=== PATIENT | female | born 1965 | race Caucasian/White ===

== ENCOUNTER 2018-05-31 15:28 | Emergency (ER) | payer OTHER ==
[2018-05-31 15:44] VITALS: BMI 64.0
--- NOTE | 2018-05-31 15:45 | PDOC ---
Rapid Medical Evaluation Time Seen by Provider: 05/31/18 15:41 Medical Evaluation: Allergies Allergy/AdvReac Type Severity Reaction Status Date / Time No Known Allergies Allergy Verified 07/30/14 15:37 I have performed a brief in-person evaluation of this patient. The patient presents with a chief complaint of: pain management doctor told her to come here because she has a blood clot in her right leg. Patient has had pain in right LE for 1 week Pertinent physical exam findings: pain in right LE I have ordered the following: doppler right LE The patient will proceed to the ED for further evaluation. Discharge Disposition - Diagnosis Right calf pain - Referrals - Patient Instructions - Post Discharge Activity
--- NOTE | 2018-05-31 16:20 | PDOC ---
Attending Attestation - HPI HPI: 05/31/18 17:41 The patient is a 52 year old female, with a significant PMH of DM, HTN, HLD, depression, scoliosis, sciatica, who presents to the emergency department with 1 week of right leg pain. The patient states the right leg pain worsened last Rishabh when she was walking upstairs and felt an electric shock like pain radiating from her right lower back down the right leg to the right ankle. She denies any recent injuries or trauma. The patient states she has a history of sciatica and her pain feels similar to previous episodes. The patient also reports her legs are swollen at baseline but states her right lower extremity appears slightly more swollen than left. She denies any recent numbness, tingling or loss of sensation. She denies any bowel or bladder incontinence. The patient denies chest pain, palpitations, shortness of breath, headache and dizziness. Denies fever, chills, nausea, vomit, diarrhea and constipation. Denies dysuria, frequency, urgency and hematuria. Allergies: NKA - Physicial Exam PE: 05/31/18 17:41 GENERAL: Awake, alert, and fully oriented, in no acute distress HEAD: No signs of trauma EYES: PERRLA, EOMI, sclera anicteric, conjunctiva clear ENT: Auricles normal inspection, hearing grossly normal, nares patent, oropharynx clear without exudates. Moist mucosa NECK: Normal ROM, supple, no lymphadenopathy, JVD, or masses LUNGS: Breath sounds equal, clear to auscultation bilaterally. No wheezes, and no crackles HEART: Regular rate and rhythm, normal S1 and S2, no murmurs, rubs or gallops ABDOMEN: +Obese. Soft, nontender, normoactive bowel sounds. No guarding, no rebound. No masses EXTREMITIES: +Lower back right paraspinal tenderness. +Tenderness to palpitation down the right leg. +Right calf tenderness. Neurovascular intact. Brisk capillary refill. Normal range of motion. No clubbing or cyanosis. No cords or erythema. NEUROLOGICAL: Cranial nerves II through XII grossly intact. Normal speech. SKIN: Warm, Dry, normal turgor, no rashes or lesions noted. <Manuel Canales - Last Filed: 05/31/18 17:40> - Resident Resident Name: Lisha Jackson - ED Attending Attestation I have performed the following: I have examined & evaluated the patient, The case was reviewed & discussed with the resident, I agree w/resident's findings & plan, Exceptions are as noted - Medical Decision Making 05/31/18 16:20 I, Dr. Julissa Ferreira, DO, attest that this document has been prepared under my direction and personally reviewed by me in its entirety. I further attest, that it accurately reflects all work, treatment, procedures and medical decision -making performed by me. 05/31/18 17:01 a/p: 52yo female with R low back pain and R leg pain -sent from pain management for eval of R leg pain that worsened over last week -will obtain duplex ultrasound, however bedside ultrasound is difficult to evaluate the popliteal vessels -suspect sciatica - R low back pain, radiates through her buttock and down R leg - electric shock sensation -will obtain ct lumbar spine, labs, ua, duplex ultrasound R leg -will medicate for pain and muscle relaxer -will monitor and reassess -pt is in pain management on chronic opiod therapy 05/31/18 17:25 pt with outpt dvt study eaerlier today that shows a popliteal dvt on the R leg that is acute will call vascular sx for anticoag preference and follow up. 05/31/18 22:31 pt has been ambulatory in the ED has an DVT resident discussed the case with Dr. Maki - [place] for d/c to home with elaquis pain currently controlled discussed sciatica and neurosx followup answered all questions 05/31/18 22:33 <Julissa Ferreira - Last Filed: 05/31/18 22:36> Discharge Disposition - Discharge Dispostion Decision to Admit order: No <Julissa Ferreira - Last Filed: 05/31/18 22:36> - Diagnosis Right calf pain, DVT (deep venous thrombosis), Low back pain - Discharge Dispostion Disposition: HOME Condition at time of disposition: Stable - Prescriptions Prescriptions: Apixaban [Eliquis -] 10 mg PO BID #40 tablet - Referrals Referrals: Joaquín Maki MD [Staff Physician] - Trev Moctezuma MD, FAANS [Staff Physician] - - Patient Instructions Printed Discharge Instructions: DI for Deep Vein Thrombosis, DI for Low Back Pain Additional Instructions: Please take the medication as prescribed. Please follow up with the vascular surgeon in 1 week. Please follow up with your PMD. Please follow up with your pain management doctor. Please return to the ED with any further concerns or complaints. Attestations - Attestations 05/31/18 17:42 Documentation prepared by Manuel Canales, acting as medical technologist chief for Julissa Ferreira DO. <Manuel Canales - Last Filed: 05/31/18 17:40>
--- NOTE | 2018-05-31 16:40 | PDOC ---
History of Present Illness - General Chief Complaint: Pain, Acute Stated Complaint: PCP SENT/PAIN Time Seen by Provider: 05/31/18 15:41 - History of Present Illness Initial Comments: 05/31/18 16:38 52 year old with a history of DM, HTN, HLD, sciatica and depression who presents with 1 week of R leg pain from the hip to ankle. She states that the pain is so severe that sometimes she has difficulty walking. The pain is worse when she flexes her ankle. She takes medications for her medical conditions and denies smoking. She denies shortness of breath, chest pain, abdominal pain, diarrhea, pain with urination or blood in urine or stool. The patient with seen at [facility] and was found to have a DVT in the R leg. PMHX: as in HPI PSHX: none Meds: Allergies: none Tob: none Etoh: none Rec drugs: none Past History - Past Medical History Allergies/Adverse Reactions: Allergies Allergy/AdvReac Type Severity Reaction Status Date / Time No Known Allergies Allergy Verified 07/30/14 15:37 Home Medications: Ambulatory Orders Lisinopril/Hydrochlorothiazide [Lisinopril-Hctz 10-12.5 mg Tab] 1 each PO DAILY 10/21/14 Triamcinolone 0.1% Cream [Aristocort] 1 applic TP DAILY 10/21/14 Lipase/Protease/Amylase [Creon Dr 24,000 Units Capsule] 1 each PO TID 01/15/15 Omeprazole [Prilosec (RX)] 40 mg PO DAILY 01/15/15 Pantoprazole Sodium [Protonix] 40 mg PO DAILY 01/15/15 Sertraline HCl [Zoloft -] 50 mg PO DAILY 09/01/15 traZODone HCL [Desyrel -] 50 mg PO HS 09/01/15 Albuterol Sulfate Inhaler - [Ventolin Hfa Inhaler -] 1 - 2 inh PO QID PRN Montelukast Na [Singulair -] 10 mg PO HS 09/30/15 metFORMIN HCL [Metformin HCl] 500 mg PO BID 12/22/15 Celecoxib [Celebrex -] 100 mg PO BID 04/13/16 Risperidone [Risperdal -] 1 mg PO HS 09/05/16 Gabapentin 600 mg PO TID #90 tablet 03/06/18 Apixaban [Eliquis -] 10 mg PO BID #40 tablet 05/31/18 Diclofenac Sodium [Voltaren] 2 gm TP TID PRN #3 tube 05/31/18 Ergocalciferol [Vitamin D2] 50,000 units PO WEEKLY #4 capsule 05/31/18 Oxycodone HCl/Acetaminophen [Percocet 10-325 mg Tablet] 1 each PO TID PRN #75 tablet MDD 3 05/31/18 Asthma: Yes Cancer: No Cardiac Disorders: No CVA: No COPD: No CHF: No Dementia: No Diabetes: Yes (type II, oral meds) GI Disorders: No HTN: Yes Hypercholesterolemia: No Liver Disease: No Seizures: No - Surgical History Cholecystectomy: Yes Orthopedic Surgery: Yes (rt shoulder tendon repair 04/10/15 ) - Immunization History Immunization Up to Date: Yes - Suicide/Smoking/Psychosocial Hx Smoking History: Never smoked Have you smoked in the past 12 months: No Information on smoking cessation initiated: No Hx Alcohol Use: No Drug/Substance Use Hx: No Substance Use Type: None Hx Substance Use Treatment: No Review of Systems - Review of Systems Able to Perform ROS?: Yes Is the patient limited Icelandic proficient: Yes Constitutional: No: Chills, Diaphoresis, Fever HEENTM: No: Tinnitus Respiratory: No: Cough, Orthopnea, Shortness of Breath Cardiac (ROS): No: Chest Pain, Palpitations, Chest Tightness ABD/GI: No: Constipated, Diarrhea, Nausea, Vomiting : No: Burning, Dysuria, Hematuria Neurological: No: Headache, Numbness, Tingling *Physical Exam - Vital Signs Last Vital Signs Temp Pulse Resp BP Pulse Ox 98.6 F 87 20 135/80 99 05/31/18 15:30 05/31/18 15:30 05/31/18 15:30 05/31/18 15:30 05/31/18 15:30 - Physical Exam Comments: GENERAL: Obese, Awake, alert, and fully oriented, in no acute distress HEAD: No signs of trauma, normocephalic, atraumatic EYES: EOMI, sclera anicteric, conjunctiva clear ENT: Auricles normal inspection, hearing grossly normal, nares patent, oropharynx clear without exudates. Moist mucosa NECK: Normal ROM, supple LUNGS: No distress, speaks full sentences, clear to auscultation bilaterally HEART: Regular rate and rhythm, normal S1 and S2, no murmurs, rubs or gallops, peripheral pulses normal and equal bilaterally. ABDOMEN: Soft, nontender, normoactive bowel sounds. No guarding, no rebound. No masses EXTREMITIES : Normal inspection, Normal range of motion, + mild edema bilateral ankles. No clubbing or cyanosis. + R leg pain on dorsiflexion of foot, + tenderness to palpation of popliteal fossa NEUROLOGICAL: Normal speech, normal gait, no focal sensorimotor deficits SKIN: Warm, Dry, normal turgor, no rashes or lesions noted ED Treatment Course - LABORATORY CBC & Chemistry Diagram: 05/31/18 16:45 05/31/18 16:45 Medical Decision Making - Medical Decision Making 52 year old w/ history of HTN, DM, HLD, depression presents with R leg pain for 1 week and found to have R leg DVT. Patient as has a history of sciatica which is likely contributing to the pain presentation as well. W/U - CBC, CMP, PT/INR - UA - CT lumbar spine Vascular ([facility]) contacted for recommendation on anticoagulation course. - 10mg Eliquis BID for 7 days then 5mg Eliquis BID Patient given first dose of Eliquis given referral for f/u with vascular, given strict return precautions. *DC/Admit/Observation/Transfer Diagnosis at time of Disposition: Right calf pain, DVT (deep venous thrombosis), Low back pain - Discharge Dispostion Disposition: HOME Condition at time of disposition: Stable - Prescriptions Prescriptions: Apixaban [Eliquis -] 10 mg PO BID #40 tablet - Referrals Referrals: Trev Moctezuma MD, FAANS [Staff Physician] - Joaquín Maki MD [Staff Physician] - - Patient Instructions Printed Discharge Instructions: DI for Deep Vein Thrombosis, DI for Low Back Pain Additional Instructions: Please take the medication as prescribed. Please follow up with the vascular surgeon in 1 week. Please follow up with your PMD. Please follow up with your pain management doctor. Please return to the ED with any further concerns or complaints. Print Language: CZECH - Post Discharge Activity
[2018-05-31 16:58] LABS: BASO % 0.9 % (0-2.0); HEMATOCRIT 38.1 % (32.4-45.2); HEMOGLOBIN 13.1 GM/dL (10.7-15.3); LYMPH % 39.6 % (8-40); MCH 28.6 pg (25.7-33.7); MCHC 34.4 g/dl (32.0-36.0); MEAN CELL VOLUME 83.2 fl (80-96); MEAN PLT VOLUME 8.5 fl (7.5-11.1); MONO % 5.5 % (3.8-10.2); PLATELET COUNT 229 K/MM3 (134-434); RBC 4.58 M/mm3 (3.60-5.2); RDW 14.4 % (11.6-15.6); WHITE BLOOD COUNT 6.2 K/mm3 (4.0-10.0)
[2018-05-31] MEDS ORDERED: diazePAM 5 MG TABLET PO ONE ×2 (17:01→17:12)
[2018-05-31] MEDS ORDERED: oxyCODONE HCL 5 MG TABLET PO ONE (17:01)
[2018-05-31] MEDS ORDERED: KETOROLAC TROMETHAMINE 30 MG/1 ML VIAL IVPUSH ONE (17:02)
[2018-05-31] MEDS: diazePAM CARPU-JECT 10 MG/2 ML DISP.SYRIN IVPUSH ONE ×2 (17:04→17:11)
[2018-05-31] MEDS ORDERED: oxyCODONE HCL 5 MG TABLET ONE (17:07)
[2018-05-31] MEDS ORDERED: diazePAM 5 MG TABLET ONE (17:07)
[2018-05-31] MEDS ORDERED: KETOROLAC TROMETHAMINE 30 MG/1 ML VIAL ONE (17:07)
[2018-05-31 17:23] LABS: INR 1.15 (0.83-1.09)
[2018-05-31 17:32] LABS: ALBUMIN 3.9 g/dl (3.4-5.0); ANION GAP 8 (8-16); BILIRUBIN,TOTAL 0.4 mg/dL (0.2-1.0); BLOOD UREA NITROGEN 12 mg/dL (7-18); CALCIUM 9.1 mg/dL (8.5-10.1); CHLORIDE 107 mmol/L (98-107); CO2 28 mmol/L (21-32); CREATININE 0.8 mg/dL (0.55-1.02); GLUCOSE,RANDOM 140 mg/dL (74-106); POTASSIUM 4.1 mmol/L (3.5-5.1); SGOT/AST 17 U/L (15-37); SGPT/ALT 29 U/L (12-78); SODIUM 143 mmol/L (136-145); TOT PROT 7.1 g/dl (6.4-8.2)
[2018-05-31 17:33] LABS: ALK PHOS 93 U/L (45-117)
[2018-05-31 19:03] VITALS: BP 124/68; PULSE 71; TEMP 97.6
[2018-05-31 21:58] LABS: URINE APPEARANCE CLEAR; URINE BILIRUBIN NEGATIVE (<2.0 mg/dL); URINE COLOR YELLOW; URINE GLUCOSE (UA) NEGATIVE (NEGATIVE); URINE KETONE NEGATIVE (NEGATIVE); URINE LEUK ESTERASE NEGATIVE (NEGATIVE); URINE NITRITE NEGATIVE (NEGATIVE); URINE PROTEIN NEGATIVE (NEGATIVE); URINE UROBILINOGEN NEGATIVE mg/dL (0.2-1.0)
[2018-05-31] MEDS ORDERED: APIXABAN 5 MG TABLET PO SCH (22:00)
[2018-05-31] MEDS ORDERED: APIXABAN 5 MG TABLET PO ONE (22:32)
== END 2018-05-31 22:39 | disposition home or self-care (01) ==
LOC: JER 15:28
PROC: 3E0333Z Introduction of Anti-inflammatory into Peripheral Vein, Percutaneous Approach (ICD-10-PCS; principal; 2018-05-31)
DX: I82.4Z1 Acute embolism and thrombosis of unspecified deep veins of right distal lower extremity (principal); M79.661 Pain in right lower leg; M54.5 Low back pain; I10 Essential (primary) hypertension; E11.9 Type 2 diabetes mellitus without complications; E78.5 Hyperlipidemia, unspecified; F32.9 Major depressive disorder, single episode, unspecified; M41.9 Scoliosis, unspecified
CPT/HCPCS: 36415; 72131-TC; 80053; 81003; 85025; 85610; 99284-25